=== PATIENT | female | born 1970 | race Caucasian/White ===

== ENCOUNTER → 2017-11-13 | Outpatient (CLI) | payer OTHER | LOC: M RAD 12:16 | DX: Z12.31 Encounter for screening mammogram for malignant neoplasm of breast (principal) | CPT/HCPCS: 77067 ==

== ENCOUNTER → 2017-12-04 | Outpatient (CLI) | payer OTHER | LOC: M RAD 10:04 | DX: R92.2 Inconclusive mammogram (principal) | CPT/HCPCS: 77065 ==

== ENCOUNTER → 2019-09-13 | Outpatient (REF) | payer OTHER | LOC: M SFHCWAGY 13:41 | PROVIDERS: ATTEND Nurse Practitioner Family | DX: Z12.4 Encounter for screening for malignant neoplasm of cervix (principal) | CPT/HCPCS: 87624; G0123 ==

== ENCOUNTER → 2020-03-20 | Outpatient (CLI) | payer OTHER ==
--- NOTE | 2020-03-27 07:55 | REP ---
RENAL ULTRASOUND Delay in reporting results from malfunction of the hospital computer system as a result of malware attack. INDICATION: History of complex renal cyst on right and simple cyst on left, and chronic stage 3 renal disease. COMPARISON: There are no comparison studies available. FINDINGS: The right kidney measures 13.4 x 8.6 x 7.4 cm. The left kidney measures 11.4 x 3.8 x 4.6 cm. The kidneys are normal in size. Renal cortical echogenicity is normal bilaterally. There is no hydronephrosis on the right or the left. There is a septated cyst in the right kidney measuring 12.8 x 6.2 x 9.0 cm. The cyst wall is smooth without nodularity or calcification. The septum is thin without calcification or nodularity. This is a Bosniak type 1 cyst. There are no other cysts or masses on the right. There is a left renal cyst measuring 4.2 x 3.9 x 3.9 cm. The cyst is smooth walled without wall nodularity or calcification. There is no septation. This is a Bosniak type 1 cyst. There are no solid masses in the left kidney. Bladder: The bladder is incompletely distended, containing only 26.8 mm of fluid and cannot be further evaluated. IMPRESSION: There is a Bosniak type 1 cyst in the right kidney containing a thin septation. There is a Bosniak type 1 cyst in the left kidney without septation. MTDD
== END ==
LOC: M RAD 07:15
PROVIDERS: ATTEND Internal Medicine Nephrology
DX: N18.3 Chronic kidney disease, stage 3 (moderate) (principal)

== ENCOUNTER → 2020-06-17 | Outpatient (CLI) | payer SELFPAY | LOC: M LABSMTC 12:47 | PROVIDERS: ATTEND Pediatrics | DX: Z20.828 Contact with and (suspected) exposure to other viral communicable diseases (principal) ==

== ENCOUNTER → 2020-06-20 | Outpatient (CLI) | payer SELFPAY | LOC: M LABSMTC 08:31 | PROVIDERS: ATTEND Pediatrics | DX: Z20.828 Contact with and (suspected) exposure to other viral communicable diseases (principal) ==

== ENCOUNTER → 2020-07-17 | Outpatient (CLI) | payer OTHER ==
[2020-07-17 14:02] LABS: ALBUMIN 3.9 GM/DL (3.2-5.2); CALCIUM LEVEL 9.9 MG/DL (8.5-10.1); CREATININE FOR GFR 1.24 MG/DL (0.55-1.30); GLOMERULAR FILTRATION RATE 49.1 (>58); PHOSPHORUS LEVEL 3.8 MG/DL (2.5-4.9); POTASSIUM SERUM 4.1 MEQ/L (3.5-5.1)
== END ==
LOC: M LAB 13:19
PROVIDERS: ATTEND Internal Medicine Nephrology
DX: N18.2 Chronic kidney disease, stage 2 (mild) (principal); I12.9 Hypertensive chronic kidney disease with stage 1 through stage 4 chronic kidney disease, or unspecified chronic kidney disease; N28.1 Cyst of kidney, acquired

== ENCOUNTER → 2020-07-21 | Outpatient (CLI) | payer OTHER ==
[~2020-07-21] MED LIST: PROHANCE 279.3MG/ML 5ML VIAL As Ordered ONE
--- NOTE | 2020-07-22 10:22 | REP ---
INDICATION: CHRONIC KIDNEY DISEASE, STAGE 2 (MILD). COMPARISON: Ultrasound 03/20/2020. TECHNIQUE: Multiple sequences obtained in the axial coronal planes prior to and following the intravenous administration of 9 cc ProHance. FINDINGS: There is a dominant large cyst in the right kidney, the majority of which is intrarenal and extends throughout the upper and lower poles. It is mildly hyperintense on T1 fat sat images and is hyperintense on T2 weighted images. There are several internal septations primarily in the superior aspect of the cyst. One of the septations is slightly thickened but there is no internal nodularity. The cyst measures 11.6 x 8.5 x 8.2 cm. This is a Bosniak 2 F cyst requiring follow-up. Two subcentimeter cysts are seen in the upper pole of the right kidney. There is a 1 cm cyst in the medial mid right kidney. Another subcentimeter cyst is seen in the lower right kidney. On the left multiple cysts are present. The largest cyst is in the mid aspect, the majority is exophytic. It measures 4.2 x 3.9 x 4.3 cm. There is no internal enhancement. There are no internal septations or nodules. This is a Bosniak 1 simple cyst. Three other smaller cysts are seen in the upper pole of the left kidney, 2 subcentimeter in size and the other 1.7 cm. There are 2 tiny subcentimeter cysts in the lower left kidney. There is no hydronephrosis bilaterally. The visualized liver, spleen, adrenals and pancreas are unremarkable. There is no adenopathy or free fluid in the abdomen. IMPRESSION: Multiple bilateral renal cysts as discussed above. The largest cyst is predominantly intrarenal and involves the entire right kidney. It is slightly hyperintense on T1 fat-sat images suggesting some degree of internal proteinaceous or hemorrhagic fluid. Several internal septations are seen predominantly superiorly with 1 minimally thickened septation but no internal enhancing nodularity. It measures 11.6 x 8.5 x 8.2 cm. This is a Bosniak 2 F cyst requiring follow-up, follow-up MRI is recommended in 6 months. Other bilateral renal cysts are simple, Bosniak 1, with no follow-up needed. <Electronically signed by Rodney Ku > 07/22/20 [id number]
== END ==
LOC: M RAD 16:23
PROVIDERS: ATTEND Internal Medicine Nephrology
DX: N18.2 Chronic kidney disease, stage 2 (mild) (principal); I12.9 Hypertensive chronic kidney disease with stage 1 through stage 4 chronic kidney disease, or unspecified chronic kidney disease; N28.1 Cyst of kidney, acquired
CPT/HCPCS: 74183; A9576

== ENCOUNTER → 2021-02-26 | Outpatient (REF) | payer OTHER | LOC: M LAB REF 12:57 | PROVIDERS: ATTEND Internal Medicine Nephrology | DX: N18.31 Chronic kidney disease, stage 3a (principal) ==

== ENCOUNTER → 2021-04-30 | Outpatient (REF) | payer OTHER | LOC: M LAB REF 13:15 | PROVIDERS: ATTEND Internal Medicine Nephrology | DX: N18.31 Chronic kidney disease, stage 3a (principal) ==

== ENCOUNTER → 2021-09-03 | Outpatient (REF) | payer OTHER | LOC: M LAB REF 12:53 | PROVIDERS: ATTEND Nurse Practitioner Family | DX: N18.31 Chronic kidney disease, stage 3a (principal) ==

== ENCOUNTER → 2022-10-26 | Outpatient (REF) | payer OTHER ==
[2022-10-26 18:18] LABS: APPEARANCE, URINE CLOUDY (CLEAR); BACTERIA, URINE AUTO 1+ (NEGATIVE); BILIRUBIN, URINE AUTO NEGATIVE (NEGATIVE); BLOOD, URINE BLOOD NEGATIVE (NEGATIVE); COLOR, URINE YELLOW (YELLOW); GLUCOSE, URINE (UA) AUTO NEGATIVE (NEGATIVE); KETONE, URINE AUTO NEGATIVE (NEGATIVE); LEUKOCYTE ESTERASE, URINE AUTO 3+ (NEGATIVE); NITRITE, URINE AUTO NEGATIVE (NEGATIVE); PROTEIN, URINE AUTO NEGATIVE (NEGATIVE); RBC, URINE AUTO 21 /HPF (0-3); SPECIFIC GRAVITY URINE AUTO 1.014 (1.002-1.035); SQUAMOUS EPITHELIAL CELL UR AU 57 /HPF (0-6); UROBILINOGEN, URINE AUTO 0.2 mg/dL (0.0-2.0); WBC, URINE AUTO 146 /HPF (0-3)
== END ==
LOC: M LAB REF 16:43
PROVIDERS: ATTEND Internal Medicine Nephrology
DX: R30.0 Dysuria (principal)

== ENCOUNTER → 2022-11-01 | Outpatient (REF) | payer OTHER ==
[2022-11-01 18:32] LABS: APPEARANCE, URINE MANUAL CLEAR (CLEAR); COLOR, URINE MANUAL YELLOW (YELLOW)
[2022-11-01 18:33] LABS: BLOOD URINE MANUAL POSITIVE (NEGATIVE)
[2022-11-01 18:34] LABS: BILIRUBIN, URINE MANUAL NEGATIVE (NEGATIVE); GLUCOSE, URINE (UA) MANUAL NEGATIVE (NEGATIVE); KETONE, URINE MANUAL NEGATIVE (NEGATIVE); LEUKOCYTE ESTERASE, URINE MAN NEGATIVE (NEGATIVE); NITRITE, URINE MANUAL NEGATIVE (NEGATIVE); PROTEIN, URINE MANUAL NEGATIVE (NEGATIVE); UROBILINOGEN, URINE MANUAL NORMAL (NORMAL)
[2022-11-01 18:56] LABS: RBC, URINE TNTC /hpf (0-3); WBC, URINE 0-1 /hpf (0-3)
[2022-11-01 18:57] LABS: BACTERIA, URINE SMALL AMOUNT; HYALINE CAST, URINE NONE SEEN /lpf (0-1); MUCUS, URINE MOD AMOUNT (NEGATIVE); SQUAMOUS EPITHELIAL CELL URINE MOD AMOUNT /hpf (SMALL AMT)
== END ==
LOC: M LAB REF 17:28
PROVIDERS: ATTEND Internal Medicine Nephrology
DX: R30.0 Dysuria (principal)

== ENCOUNTER → 2025-06-18 | Outpatient (CLI) | payer OTHER | LOC: M WHC 15:03 | PROVIDERS: ATTEND Nurse Practitioner Primary Care | DX: Z12.31 Encounter for screening mammogram for malignant neoplasm of breast (principal) ==